=== PATIENT | male | born 1945 | race Caucasian/White ===

== ENCOUNTER 2018-06-12 09:28 | Emergency (ER) | payer OTHER ==
[~2018-06-12] VITALS: Ht 165.1 cm; Wt 56.7 kg
[2018-06-12 09:47] VITALS: BP 139/78
== END 2018-06-12 10:43 | disposition left against medical advice (07) ==
LOC: ER 09:28
DX: M25.511 Pain in right shoulder (principal); F17.210 Nicotine dependence, cigarettes, uncomplicated; R07.89 Other chest pain; Z53.29 Procedure and treatment not carried out because of patient's decision for other reasons